=== PATIENT | female | born 1955 | race Caucasian/White ===

== ENCOUNTER 2022-03-23 07:10 | Outpatient (CLI) | payer MEDICARE | END 2022-03-23 07:11 | disposition home or self-care (01) | LOC: ULT 07:10 | PROVIDERS: ATTEND Internal Medicine Gastroenterology | DX: R10.11 Right upper quadrant pain (principal); K21.9 Gastro-esophageal reflux disease without esophagitis; D64.9 Anemia, unspecified; R19.4 Change in bowel habit | CPT/HCPCS: 76700 ==